=== PATIENT | female | born 1960 | race Caucasian/White ===

== ENCOUNTER 2025-04-06 00:14 | Outpatient (CLI) | payer BC, SELFPAY ==
--- NOTE | 2025-04-06 | DI.NM_ITS ---
Exam(s) NM HEPATOBILIARY SCAN GRP EXAM: NM HEPATOBILIARY SCAN GRP CLINICAL HISTORY: EPIGASTRIC PAIN, R10.13. TECHNIQUE: Injected dose: 5 mCi Tc-99 mebrofenin Initial dynamic images: 60 minutes Delayed images were obtained at 90 minutes, 2 hours and 3 hours. COMPARISON: CT CT Abd Pel w/ Contrast from 11/11/2022 US US Abdomen (Limited) from 01/11/2024 US US ABDOMEN LIMITED from 04/06/2025 FINDINGS: Normal hepatic transit time. Delayed excretion into the small bowel which was visualized on the 3 hour images. The common duct appears dilated on the 3 hour images. The common duct was noted to be dilated on the ultrasound performed earlier the same day. The common duct diameter was normal on the previous examinations from 2022 and 2023. The gallbladder was not visualized. The gallbladder is noted to be full of stones on prior ultrasounds. IMPRESSION: Subtly delayed visualization of the common duct and bowel. The gallbladder was not visualized out to 3 hours. Findings in combination with the ultrasound are suspicious for a distal common duct stone. SNM guidelines: Gallbladder visualization should be present by 3 hours. Delayed [id number] transit beyond 60 min raises the suspicion for partial common bile duct (CBD) obstruction. Gallbladder ejection fraction <35% has a good correlation with acalculous disease (i.e., chronic acalculous cholecystitis, cystic duct syndrome, sphincter of Oddi disease).
--- NOTE | 2025-04-06 07:10 | DI.US_ITS ---
Exam(s) US ABDOMEN LIMITED EXAM: US ABDOMEN LIMITED CLINICAL HISTORY: EPIGASTRIC PAIN, R10.13 TECHNIQUE: Ultrasound abdomen performed using standard protocol. COMPARISON: CT CT Abd Pel w/ Contrast from 11/11/2022 US US Abdomen (Limited) from 01/11/2024 FINDINGS: PANCREAS: Normal where visualized. LIVER: Normal. Hepatopetal flow in the Portal Vein. The liver measures in 17.1 cm length. There are no suspicious hepatic masses present. GALLBLADDER:The gallbladder is contracted with numerous gallstones present. The gallstones are immobile. No evidence of wall thickening. No pericholecystic fluid identified. BILIARY SYSTEM: Common bile duct measures 1.5 cm. No intrahepatic biliary ductal dilation. LIND'S SIGN: Negative. RIGHT KIDNEY: Kidney is normal in size. No evidence of renal calculi. No evidence of hydronephrosis. No renal mass or cyst identified. ASCITES: None seen. IMPRESSION: 1. Choledocholithiasis. 2. The common duct measures 1.5 cm. No stones are seen in the duct sonographically. MRCP may be considered to exclude choledocholithiasis. DATA REPOSITORY:
== END 2025-04-06 00:34 ==
PROVIDERS: PCP Family Medicine; Visit Provider Family Medicine
DX: K80.50 Calculus of bile duct without cholangitis or cholecystitis without obstruction (principal)
CPT/HCPCS: 78227; 76705